=== PATIENT | female | born 1990 | race Caucasian/White ===

== ENCOUNTER 2023-06-14 21:02 | Emergency (ER) | payer MEDICAID, OTHER ==
[~2023-06-14] VITALS: Ht 157.5 cm; Wt 59.0 kg
[2023-06-14 21:13] VITALS: TEMP 99.3; O2SAT 96
[2023-06-14] MEDS ORDERED: TRANEXAMIC ACID 1,000MG/10ML IV ONE (22:30)
[2023-06-14 22:53] LABS: BASOPHILS % 0.5 % (0.0-2.0); HEMATOCRIT. 36.6 % (36.0-48.0); HEMOGLOBIN. 12.2 g/dL (12.0-16.0); LYMPHOCYTES % 10.3 % (20.0-50.0); MEAN CORPUSCULAR HEMOGLOBIN 29.9 pg (28.0-32.0); MEAN CORPUSCULAR HGB CONC 33.4 g/dL (31.0-37.0); MEAN CORPUSCULAR VOLUME 89.4 fL (81.0-99.0); MONOCYTES % 4.3 % (2.0-8.0); NEUTROPHILS % 84.9 % (40.0-76.0); PLATELET 303 x1000/uL (130-400); RED CELL DISTRIBUTION WIDTH 13.6 % (11.6-14.6); WHITE BLOOD COUNT 15.8 x1000/uL (4.5-11.0)
[2023-06-14 23:04] LABS: PARTIAL THROMBOPLASTIN TIME 28.6 sec (23.4-31.0); PROTHROMBIN TIME 11.4 sec (9.6-11.0)
[2023-06-14 23:09] LABS: ALANINE AMINOTRANSFERASE < 7 IU/L (10-49); ALBUMIN 4.3 g/dL (3.2-4.8); ASPARTATE AMINOTRANSFERASE 15 IU/L (<34); BILIRUBIN TOTAL 0.3 mg/dL (0.1-1.0); CALCIUM 8.4 mg/dL (8.7-10.4); CARBON DIOXIDE 22 mEq/L (21-32); CHLORIDE 102 mEq/L (98-107); CREATININE 0.7 mg/dL (0.6-1.0); GLUCOSE 113 mg/dL (70-105); POTASSIUM 3.5 mEq/L (3.5-5.1); PROTEIN TOTAL 7.3 g/dL (6.0-8.3); SODIUM 133 mEq/L (136-145); UREA NITROGEN BLOOD 13 mg/dL (9-23)
[2023-06-14 23:14] LABS: HCG SCREEN NEGATIVE
[2023-06-15] MEDS: SODIUM CHLORIDE 0.9% 1,000 ML IV ONE (00:15)
[2023-06-15] MEDS: TRANEXAMIC ACID 1000MG PREMIX 100 ML IV NR (00:15)
[2023-06-15 00:55] VITALS: BP 129/93; PULSE 110; RESP 18
== END 2023-06-15 02:13 | disposition home or self-care (01) ==
LOC: ER 21:02
DX: K13.79 Other lesions of oral mucosa (principal); R68.89 Other general symptoms and signs
CPT/HCPCS: 99284; 80053; 84703; 85025; 85610; 85730; 86850; 86900; 86901; 36415; 96365; J7030